=== PATIENT | female | born 1980 | race Caucasian/White ===

== ENCOUNTER 2018-08-15 10:11 | Inpatient (IN) | payer OTHER ==
[2018-08-15] MEDS ORDERED: Nalbuphine 10 MG/1 ML Vial IVPUSH PRN (19:14)
[2018-08-15] MEDS ORDERED: Lidocaine 1% 50 ML MDV INJECT PRN (19:14)
[2018-08-15] MEDS ORDERED: Sodium Chloride 0.9% 2.5 ML Syringe FLUSH PRN (19:14)
[2018-08-15] MEDS ORDERED: Misoprostol 200 MCG Tab PO PRN (19:14)
[2018-08-15] MEDS ORDERED: Water For Irrigation,Sterile 1,000 ML Container IRR PRN (19:14)
[2018-08-15] MEDS ORDERED: Butorphanol 1 MG/ML SDV IVPUSH PRN (19:14)
[2018-08-15] MEDS ORDERED: Tranexamic Acid 1,000 MG in Sodium Chloride 0.9% 100 ML IV PRN (19:14)
[2018-08-15] MEDS ORDERED: Carboprost Tromethamine 250 MCG/1 ML Amp IM PRN (19:14)
[2018-08-15] MEDS ORDERED: Methylergonovine 0.2 MG/1 ML Amp IM PRN (19:14)
[2018-08-15] MEDS ORDERED: Sodium Chloride 0.9% 10 ML Syringe FLUSH PRN (19:14)
[2018-08-15] MEDS ORDERED: Oxytocin/0.9 % Sodium Chloride 30 UNIT/500 ML BAG IV SCH ×2 (19:15→20:15)
[2018-08-15] MEDS ORDERED: Misoprostol 25 MCG (1/4 of 100 MCG) Tab VAG PRN (20:10)
[2018-08-15] MEDS ORDERED: Terbutaline 1 MG/ML SDV SUBCUT PRN (20:10)
[2018-08-15 20:15] LABS: CHLORIDE,CL 105 mmol/L (98-107); SODIUM,NA 134 mmol/L (136-145)
[2018-08-15] MEDS ORDERED: Insulin NPH/Insulin Regular,Human 70-30 100 Units/ML 10 ML Vial SUBCUT SCH (22:00)
[2018-08-15] MEDS: Insuln Aspart Prot/Insulin Aspart 100 Units/ML 3 ML FlexPen SUBCUT SCH (22:42)
[2018-08-16] MEDS: Misoprostol 25 MCG (1/4 of 100 MCG) Tab VAG PRN ×2 (00:55→05:20)
[2018-08-16] MEDS: Insuln Aspart Prot/Insulin Aspart 100 Units/ML 3 ML FlexPen SUBCUT SCH ×2 (08:48→21:00)
[2018-08-16] MEDS: Lactated Ringers 1,000 ML IV SCH ×2 (15:27→21:14)
[2018-08-16] MEDS ORDERED: Lidocaine HCl/EPINEPHrine 5 ML IJ ONE (15:51)
[2018-08-16] MEDS ORDERED: fentaNYL 100 MCG/2 ML SDV ONE (15:51)
--- NOTE | 2018-08-16 16:33 | PCM.PREANE ---
Preanesthetic Assessment - Anesthesia/Transfusion/Family Hx Anesthesia History: Prior Anesthesia Without Reaction Family History of Anesthesia Reaction: No Transfusion History: No Prior Transfusion(s) - Review of Systems General: No Symptoms Pulmonary: No Symptoms Cardiovascular: No Symptoms Gastrointestinal: No Symptoms Neurological: No Symptoms Other: Reports: None (Denies any personal or family hx of bleeding or clotting problems) - Physical Assessment Height: 1.6 m Weight: 94.801 kg ASA Class: 2 Mental Status: Alert & Oriented x3 Airway Class: Mallampati = 2 Dentition: Reports: Normal Dentition ROM/Head Extension: Full - Lab Values: Laboratory Last Values WBC 8.71 K/uL (4.0-11.0) 08/15/18 19:44 RBC 3.89 M/uL (4.30-5.90) L 08/15/18 19:44 Hgb 12.9 g/dL (12.0-16.0) 08/15/18 19:44 Hct 37.2 % (36.0-46.0) 08/15/18 19:44 MCV 95.6 fL (80.0-98.0) 08/15/18 19:44 MCH 33.2 pg (27.0-32.0) H 08/15/18 19:44 MCHC 34.7 g/dL (31.0-37.0) 08/15/18 19:44 RDW Std Deviation 45.0 fl (28.0-62.0) 08/15/18 19:44 RDW Coeff of Lana 13 % (11.0-15.0) 08/15/18 19:44 Plt Count 181 K/uL (150-400) 08/15/18 19:44 MPV 11.30 fL (7.40-12.00) 08/15/18 19:44 Nucleated RBC % 0.0 /100WBC 08/15/18 19:44 Nucleated RBCs # 0 K/uL 08/15/18 19:44 Sodium 134 mmol/L (136-145) L 08/15/18 19:44 Potassium 3.6 mmol/L (3.5-5.1) 08/15/18 19:44 Chloride 105 mmol/L (98-107) 08/15/18 19:44 Carbon Dioxide 19.1 mmol/L (21.0-32.0) L 08/15/18 19:44 BUN 14 mg/dL (7.0-18.0) 08/15/18 19:44 Creatinine 0.9 mg/dL (0.6-1.0) 08/15/18 19:44 Est Cr Clr Drug Dosing 68.73 mL/min 08/15/18 19:44 Estimated GFR (MDRD) > 60.0 ml/min 08/15/18 19:44 Glucose 106 mg/dL (74-106) 08/15/18 19:44 POC Glucose 60 mg/dL (60-110) 08/16/18 13:14 Uric Acid 6.2 mg/dL (2.6-7.2) 08/15/18 19:44 Calcium 9.0 mg/dL (8.5-10.1) 08/15/18 19:44 Total Bilirubin 0.2 mg/dL (0.2-1.0) 08/15/18 19:44 AST 23 IU/L (15-37) 08/15/18 19:44 ALT 15 IU/L (14-63) 08/15/18 19:44 Alkaline Phosphatase 172 U/L (46-116) H 08/15/18 19:44 Total Protein 6.8 g/dL (6.4-8.2) 08/15/18 19:44 Albumin 2.5 g/dL (3.4-5.0) L 08/15/18 19:44 Globulin 4.3 g/dL (2.6-4.0) H 08/15/18 19:44 Albumin/Globulin Ratio 0.6 (0.9-1.6) L 08/15/18 19:44 Blood Type A POSITIVE 08/15/18 19:44 Antibody Screen NEGATIVE 08/15/18 19:44 - Allergies Allergies/Adverse Reactions: Allergies Allergy/AdvReac Type Severity Reaction Status Date / Time No Known Allergies Allergy Verified 06/17/14 05:41 - Acknowledgements Anesthesia Type Planned: Epidural Pt an Appropriate Candidate for the Planned Anesthesia: Yes Alternatives and Risks of Anesthesia Discussed w Pt/Guardian: Yes Pt/Guardian Understands and Agrees with Anesthesia Plan: Yes PreAnesthesia Questionnaire - Past Health History Medical/Surgical History: Denies Medical/Surgical History Gastrointestinal History: Reports: Diverticulosis [employer]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 [No Known Home Meds] 06/17/14 [History] - CURRENT (IN HOUSE) MEDS Current Meds: Current Medications Butorphanol Tartrate (Stadol) 1 mg IVPUSH Q1H PRN PRN Reason: Pain Last Admin: 08/16/18 08:44 Dose: 1 mg Carboprost Tromethamine (Hemabate Ds) 250 mcg IM ASDIRECTED PRN PRN Reason: Post Hemorrhage Lactated Ringer's (Ringers, Lactated) 1,000 mls @ 150 mls/hr IV ASDIRECTED [facility] Oxytocin/Sodium Chloride (Oxytocin 30 Unit/500 Ml-Ns) 30 unit in 500 mls @ 555 mls/hr IV TITRATE [facility] Tranexamic Acid 1,000 mg/ (Sodium Chloride) 110 mls @ 660 mls/hr IV ONETIME PRN PRN Reason: Bleeding Oxytocin/Sodium Chloride (Oxytocin 30 Unit/500 Ml-Ns) 30 unit in 500 mls @ 2 mls/hr IV TITRATE [facility]; Protocol Insulin Aspart (Novolog Mix 70-30) 6 unit SUBCUT DAILY@0700 [facility] Last Admin: 08/16/18 08:48 Dose: Not Given Insulin Aspart (Novolog Mix 70-30) 15 unit SUBCUT DAILY@2200 [facility] Last Admin: 08/15/18 22:42 Dose: 15 units Lidocaine HCl (Xylocaine 1%) 50 ml INJECT ONETIME PRN PRN Reason: Laceration repair Methylergonovine Maleate (Methergine) 0.2 mg IM ASDIRECTED PRN PRN Reason: Post Hemorrhage Misoprostol (Cytotec) 200 mcg PO ONETIME PRN PRN Reason: Post Hemorrhage Misoprostol (Cytotec) 25 mcg VAG ONETIME PRN PRN Reason: Cervical Ripening Last Admin: 08/15/18 20:44 Dose: 25 mcg Misoprostol (Cytotec) 25 mcg VAG Q4H PRN PRN Reason: Cervical Ripening Last Admin: 08/16/18 05:20 Dose: 25 mcg Nalbuphine HCl (Nubain) 10 mg IVPUSH Q1H PRN PRN Reason: Pain (severe 7-10) Sodium Chloride (Saline Flush) 10 ml FLUSH ASDIRECTED PRN PRN Reason: Keep Vein Open Sodium Chloride (Saline Flush) 2.5 ml FLUSH ASDIRECTED PRN PRN Reason: Keep Vein Open Sterile Water (Sterile Water For Irrigation) 1,000 ml IRR ASDIRECTED PRN PRN Reason: delivery Terbutaline Sulfate (Brethine) 0.25 mg SUBCUT ASDIRECTED PRN PRN Reason: Tacysystole Discontinued Medications Fentanyl (Sublimaze) Confirm Administered Dose 100 mcg .ROUTE .STK-MED ONE Stop: 08/16/18 15:52 Fentanyl/Bupivacaine HCl (Orvsyfad-Ghsjx-Qs 2 Mcg/Ml-0.125%) Confirm Administered Dose 100 mls @ as directed .ROUTE .STK-MED ONE Stop: 08/16/18 15:51 Insulin Human Isoph/Insulin Regular (Novolin 70-30) 15 unit SUBCUT ONETIME JONO Lidocaine/Epinephrine (Lidocaine 1.5%-Epi 1:200,000) Confirm Administered Dose 5 ml IJ .STK-MED ONE Stop: 08/16/18 15:52
[2018-08-17] MEDS ORDERED: fentaNYL 100 MCG/2 ML SDV ONE ×2 (01:28→08:40)
[2018-08-17] MEDS: Lactated Ringers 1,000 ML IV SCH (06:36)
[2018-08-17] MEDS ORDERED: Lidocaine 2% with EPINEPHrine 1:100,000 20 ML MDV INJECT ONE (08:05)
[2018-08-17] MEDS ORDERED: Oxytocin 10 Units/1 ML SDV ONE ×2 (09:06→10:39)
[2018-08-17] MEDS ORDERED: Morphine PF 10 MG/10 ML SDV ONE (09:07)
[2018-08-17] MEDS ORDERED: ceFAZolin 2 GM in Premix Bag 1 BAG IV ONE (09:24)
[2018-08-17] MEDS ORDERED: ceFAZolin/Dextrose,Iso-Osmotic 2 GM/50 ML Duplex Bag IV ONE (09:25)
[2018-08-17] MEDS ORDERED: Nalbuphine 10 MG/1 ML Vial IVPUSH PRN (10:14)
[2018-08-17] MEDS ORDERED: HYDROmorphone 2 MG/ML Syringe IVPUSH ONE (10:14)
[2018-08-17] MEDS ORDERED: fentaNYL 100 MCG/2 ML SDV IVPUSH PRN (10:14)
[2018-08-17] MEDS ORDERED: fentaNYL 250 MCG/5 ML SDV ONE (10:29)
[2018-08-17] MEDS ORDERED: Ondansetron 4 MG/2 ML SDV ONE (10:31)
[2018-08-17] MEDS ORDERED: Midazolam 1 MG/ML 2 ML SDV ONE ×2 (10:33→10:50)
[2018-08-17] MEDS ORDERED: Propofol 200 MG/20 ML SDV ONE (10:49)
--- NOTE | 2018-08-17 11:55 | PCM.POSTAN ---
POST ANESTHESIA ASSESSMENT - MENTAL STATUS Mental Status: Alert, Oriented - RESPIRATORY Respiratory Status: Respiratory Rate WNL, Airway Patent, O2 Saturation Stable - CARDIOVASCULAR CV Status: Pulse Rate WNL, Blood Pressure Stable - GASTROINTESTINAL GI Status: No Symptoms - POST OP HYDRATION Hydration Status: Adequate & Stable
[2018-08-17] MEDS ORDERED: Acetaminophen/oxyCODONE 325-5 MG Tab PO PRN (12:32)
[2018-08-17] MEDS ORDERED: Ibuprofen 800 MG Tab PO PRN (12:32)
[2018-08-17] MEDS ORDERED: Lanolin 100% Cream 7 GM Tube TOP PRN (12:32)
[2018-08-17] MEDS ORDERED: Bisacodyl 10 MG Supp RECTAL PRN (12:32)
[2018-08-17] MEDS ORDERED: diphenhydrAMINE 50 MG/ML SDV IVPUSH PRN (12:32)
[2018-08-17] MEDS ORDERED: Ondansetron 4 MG/2 ML SDV IVPUSH PRN (12:32)
[2018-08-17] MEDS ORDERED: Lactated Ringers 1,000 ML IV SCH (12:45)
--- NOTE | 2018-08-17 13:00 | PCM.OPNOTE ---
- General Post-Op/Procedure Note Date of Surgery/Procedure: 08/17/18 Operative Procedure(s): Primary lower transverse Findings: Live female delivered at 1011am , 9/9 , weight 3270g Pre Op Diagnosis: 38yo @ 38w1d with cat 2FHT. GDMA2. Preclampsia Post-Op Diagnosis: same Anesthesia Technique: Epidural Primary Surgeon: Pamela Mandujano Anesthesia Provider: Zaheer Aguayo Split Fluid Replacement, Intraop: 1,200 Output, Urine Amount: 600 EBL in mLs: 700 Complications: None Condition: Good Free Text/Narrative:: Intake & Output 08/16/18 08/17/18 08/17/18 22:59 06:59 14:59 Intake Total 1500 Output Total 1325 Balance 175
[2018-08-17] MEDS: Ketorolac 30 MG/ML SDV IVPUSH SCH ×2 (13:47→19:49)
--- NOTE | 2018-08-17 15:49 | OR ---
SURGEON: FELA NIELSON DATE OF PROCEDURE:08/17/2018 PREOPERATIVE DIAGNOSIS: This 38-year-old, 1 para 0 at 38 weeks and 1 day for induction of labor secondary to: 1. Gestational diabetes, on insulin control. 2. Preeclampsia. 3. She had intolerance of labor, category 2 heart tracing. POSTOPERATIVE DIAGNOSIS: This 38-year-old, 1 para 0 at 38 weeks and 1 day for induction of labor secondary to: 1. Gestational diabetes, on insulin control. 2. Preeclampsia. 3. She had intolerance of labor, category 2 heart tracing. PROCEDURE: Primary lower transverse section. ESTIMATED BLOOD LOSS: 700. IV FLUIDS: 1200. URINE OUTPUT: 600. FINDINGS: Live female delivered at 10:11 a.m. Scores were 9 and 9. Weight is 3270 g. BRIEF HISTORY: The patient at 38 weeks who was seen in the clinic. She was GDMA2, on insulin. The patient was noted to have mildly elevated blood pressures and 1+ protein in her urine. As a result, the patient was counseled for induction of labor for mild preeclampsia and GDM. So, the patient's induction of labor was started with Cytotec. She received about 4 doses of Cytotec after which a Hillman was placed in. The Hillman came out. After the Hillman came out, Pitocin was started, also AROM was done. The patient made slow progress and became about 9 cm dilated. However, the patient's tracing was noted to be category 2 heart tracing, which was not responding to intrauterine resuscitation . She was having vtgtylf-aq-leebnoxh variability and some occasional late deceleration. As a result of this, the patient was given the option for continued induction versus primary section for well being. The patient understood all the risks, benefits, and alternatives and she desired to proceed with a . All questions were answered. PROCEDURE IN DETAIL: The patient was taken to the operating suite where epidural anesthesia was topped up. She was prepared and draped in normal dorsal lithotomy position with a leftward tilt. A Pfannenstiel skin incision was made with a scalpel and carried down to the fascia with the Bovie. The fascia was incised and extended up laterally. The fascia was dissected off the rectus muscle superiorly and inferiorly. The rectus muscle was in the midline. Then, the peritoneum was entered in bluntly. The omentum was noted to be adhered to the peritoneum, was removed via the electrocautery device. An Bill retractor was placed in to expose the lower uterine segment. A bladder flap was also created. The lower uterine incision was made with a scalpel, was extended upwards and downwards. The fetus was in occiput transverse position, was elevated to the level of the incision. Then fundal pressure was performed. The head was delivered followed by the anterior and posterior shoulders. The cord was clamped and cut. The infant was handed over to the waiting pedal assembler. The placenta was delivered via controlled cord traction. The uterus cavity was then cleaned with laparotomy sponge. Then incision was closed in 2 layers, first layer with 0 Vicryl and second layer was closed with 0 Monocryl. Then, the tubes were noted and the ovaries were noted to be normal. The gutters were cleaned with moist laparotomy sponges. The peritoneum was closed with 2-0 Vicryl. The fascia was closed with 0 Vicryl. The subcutaneous fascia was cleaned with a moist laparotomy sponge. Then, a subcutaneous stitch was done. Then, the skin was closed with 3-0 Monocryl on a Steve needle. All instrument and pad count were correct x3. The patient tolerated the procedure and taken to the [facility] room in stable condition. CHARLES LINO /[id number] MTDD
[2018-08-17] MEDS: Insuln Aspart Prot/Insulin Aspart 100 Units/ML 3 ML FlexPen SUBCUT SCH (20:09)
[2018-08-17] MEDS: Docusate Sodium 100 MG Cap PO SCH (21:22)
[2018-08-18] MEDS: Insuln Aspart Prot/Insulin Aspart 100 Units/ML 3 ML FlexPen SUBCUT SCH ×3 (00:17→22:17)
[2018-08-18] MEDS: Ketorolac 30 MG/ML SDV IVPUSH SCH ×3 (01:45→13:38)
--- NOTE | 2018-08-18 06:58 | PCM48HPAN ---
Post Anesthesia Note - EVALUATION WITHIN 48HRS OF ANESTHETIC Vital Signs in Normal Range: Yes Patient Participated in Evaluation: Yes Respiratory Function Stable: Yes Airway Patent: Yes Cardiovascular Function Stable: Yes Hydration Status Stable: Yes Pain Control Satisfactory: Yes Nausea and Vomiting Control Satisfactory: Yes Mental Status Recovered: Yes Resp Rate: 18 - COMMENTS/OBSERVATIONS Free Text/Narrative:: Sitting up in bed and denies any complaints
--- NOTE | 2018-08-18 08:03 | PCM.PNPP ---
- General Info Date of Service: 08/18/18 Functional Status: Reports: Pain Controlled, Tolerating Diet, Ambulating, Urinating - Review of Systems General: Denies: Fever, Weakness, Fatigue Pulmonary: Denies: Shortness of Breath, Pleuritic Chest Pain, Cough Cardiovascular: Denies: Chest Pain, Palpitations, Dyspnea on Exertion Gastrointestinal: Denies: Abdominal Pain Genitourinary: Denies: Dysuria - General Info Date of Service: 08/18/18 - Patient Data Vital Signs - Most Recent: Last Vital Signs Temp 36.7 C 08/18/18 06:00 Pulse 91 08/18/18 06:00 Resp 18 08/18/18 06:58 BP 120/72 08/18/18 06:00 Pulse Ox 99 08/18/18 06:00 Weight - Most Recent: 94.801 kg I&O - Last 24 Hours: Intake & Output 08/17/18 08/18/18 08/18/18 22:59 06:59 14:59 Output Total 650 350 Balance -650 -350 Lab Results - Last 24 Hours: Laboratory Results - last 24 hr 08/18/18 08/18/18 Range/Units 05:22 05:22 Hgb 9.8 L (12.0-16.0) g/dL Hct 29.6 L (36.0-46.0) % Fasting Glucose 89 (74-106) mg/dL Med Orders - Current: Current Medications Bisacodyl (Dulcolax) 10 mg RECTAL ONETIME PRN PRN Reason: Constipation Diphenhydramine HCl (Benadryl) 25 mg IVPUSH Q6H PRN PRN Reason: Itching or Nausea Docusate Sodium (Colace) 100 mg PO BID [facility] Last Admin: 08/17/18 21:22 Dose: 100 mg Emollient Ointment (Lansinoh Hpa) 0 gm TOP ASDIRECTED PRN PRN Reason: Sore Nipples Fentanyl (Sublimaze) 50 mcg IVPUSH Q5M PRN PRN Reason: Pain (severe 7-10) Stop: 08/18/18 10:14 Lactated Ringer's (Ringers, Lactated) 1,000 mls @ 125 mls/hr IV ASDIRECTED [facility] Last Admin: 08/17/18 21:22 Dose: 125 mls/hr Ibuprofen (Motrin) 800 mg PO Q8H PRN PRN Reason: mild pain or fever Insulin Aspart (Novolog Mix 70-30) 6 unit SUBCUT DAILY@0700 [facility] Last Admin: 08/18/18 07:45 Dose: Not Given Insulin Aspart (Novolog Mix 70-30) 15 unit SUBCUT DAILY@2200 [facility] Last Admin: 08/18/18 00:17 Dose: Not Given Ketorolac Tromethamine (Toradol) 30 mg IVPUSH Q6H [facility] Stop: 08/18/18 12:46 Last Admin: 08/18/18 07:40 Dose: 30 mg Nalbuphine HCl (Nubain) 2.5 mg IVPUSH Q3H PRN PRN Reason: Pruritis Stop: 08/18/18 10:15 Ondansetron HCl (Zofran) 4 mg IVPUSH Q4H PRN PRN Reason: Nausea/Vomiting Oxycodone/Acetaminophen (Percocet 325-5 Mg) 1 tab PO Q4H PRN PRN Reason: Pain (moderate 4-6) Oxycodone/Acetaminophen (Percocet 325-5 Mg) 2 tab PO Q4H PRN PRN Reason: Pain (moderate 4-6) Sodium Chloride (Saline Flush) 10 ml FLUSH ASDIRECTED PRN PRN Reason: Keep Vein Open Sodium Chloride (Saline Flush) 2.5 ml FLUSH ASDIRECTED PRN PRN Reason: Keep Vein Open Discontinued Medications Butorphanol Tartrate (Stadol) 1 mg IVPUSH Q1H PRN PRN Reason: Pain Last Admin: 08/16/18 08:44 Dose: 1 mg Carboprost Tromethamine (Hemabate Ds) 250 mcg IM ASDIRECTED PRN PRN Reason: Post Hemorrhage Cefazolin Sodium/Dextrose (Ancef) Confirm Administered Dose 2 gm IV .STK-MED ONE Stop: 08/17/18 09:26 Last Admin: 08/17/18 20:10 Dose: Not Given Fentanyl (Sublimaze) Confirm Administered Dose 100 mcg .ROUTE .STK-MED ONE Stop: 08/16/18 15:52 Last Admin: 08/17/18 20:09 Dose: Not Given Fentanyl (Sublimaze) Confirm Administered Dose 100 mcg .ROUTE .STK-MED ONE Stop: 08/17/18 01:29 Last Admin: 08/17/18 20:09 Dose: Not Given Fentanyl (Sublimaze) Confirm Administered Dose 100 mcg .ROUTE .STK-MED ONE Stop: 08/17/18 08:41 Last Admin: 08/17/18 20:10 Dose: Not Given Fentanyl (Sublimaze) Confirm Administered Dose 250 mcg .ROUTE .STK-MED ONE Stop: 08/17/18 10:30 Hydromorphone HCl (Dilaudid) 2 mg IVPUSH ONETIME ONE Stop: 08/17/18 10:15 Last Admin: 08/17/18 20:10 Dose: Not Given Lactated Ringer's (Ringers, Lactated) 1,000 mls @ 150 mls/hr IV ASDIRECTED [facility] Last Admin: 08/17/18 06:36 Dose: 150 mls/hr Oxytocin/Sodium Chloride (Oxytocin 30 Unit/500 Ml-Ns) 30 unit in 500 mls @ 555 mls/hr IV TITRATE [facility] Tranexamic Acid 1,000 mg/ (Sodium Chloride) 110 mls @ 660 mls/hr IV ONETIME PRN PRN Reason: Bleeding Oxytocin/Sodium Chloride (Oxytocin 30 Unit/500 Ml-Ns) 30 unit in 500 mls @ 2 mls/hr IV TITRATE [facility]; Protocol Last Titration: 08/17/18 07:04 Dose: 18 munits/min, 18 mls/hr Fentanyl/Bupivacaine HCl (Wwejfuak-Yggfl-Nc 2 Mcg/Ml-0.125%) Confirm Administered Dose 100 mls @ as directed .ROUTE .[employer]-MED ONE Stop: 08/16/18 15:51 Last Admin: 08/17/18 20:09 Dose: Not Given Fentanyl/Bupivacaine HCl (Sugiibbs-Socdz-Iq 2 Mcg/Ml-0.125%) Confirm Administered Dose 100 mls @ as directed .ROUTE .STK-MED ONE Stop: 08/17/18 01:22 Last Admin: 08/17/18 20:09 Dose: Not Given Fentanyl/Bupivacaine HCl (Ckcjaazu-Epazb-Al 2 Mcg/Ml-0.125%) Confirm Administered Dose 100 mls @ as directed .ROUTE .STK-MED ONE Stop: 08/17/18 08:42 Last Admin: 08/17/18 20:10 Dose: Not Given Cefazolin Sodium/Dextrose 2 gm (/ Premix) 50 mls @ 100 mls/hr IV ONETIME ONE Stop: 08/17/18 09:53 Last Admin: 08/17/18 20:10 Dose: Not Given Insulin Human Isoph/Insulin Regular (Novolin 70-30) 15 unit SUBCUT ONETIME JONO Lidocaine HCl (Xylocaine 1%) 50 ml INJECT ONETIME PRN PRN Reason: Laceration repair Lidocaine/Epinephrine (Lidocaine 1.5%-Epi 1:200,000) Confirm Administered Dose 5 ml IJ .STK-MED ONE Stop: 08/16/18 15:52 Last Admin: 08/17/18 20:09 Dose: Not Given Methylergonovine Maleate (Methergine) 0.2 mg IM ASDIRECTED PRN PRN Reason: Post Hemorrhage Midazolam HCl (Versed 1 Mg/Ml) Confirm Administered Dose 2 mg .ROUTE .STK-MED ONE Stop: 08/17/18 10:34 Midazolam HCl (Versed 1 Mg/Ml) Confirm Administered Dose 2 mg .ROUTE .STK-MED ONE Stop: 08/17/18 10:51 Misoprostol (Cytotec) 200 mcg PO ONETIME PRN PRN Reason: Post Hemorrhage Misoprostol (Cytotec) 25 mcg VAG ONETIME PRN PRN Reason: Cervical Ripening Last Admin: 08/15/18 20:44 Dose: 25 mcg Misoprostol (Cytotec) 25 mcg VAG Q4H PRN PRN Reason: Cervical Ripening Last Admin: 08/16/18 05:20 Dose: 25 mcg Morphine Sulfate (Duramorph Pf) Confirm Administered Dose 10 mg .ROUTE .STK-MED ONE Stop: 08/17/18 09:08 Nalbuphine HCl (Nubain) 10 mg IVPUSH Q1H PRN PRN Reason: Pain (severe 7-10) Ondansetron HCl (Zofran) Confirm Administered Dose 4 mg .ROUTE .STK-MED ONE Stop: 08/17/18 10:32 Oxytocin (Pitocin) Confirm Administered Dose 10 unit .ROUTE .STK-MED ONE Stop: 08/17/18 09:07 Oxytocin (Pitocin) Confirm Administered Dose 20 unit .ROUTE .STK-MED ONE Stop: 08/17/18 10:40 Propofol (Diprivan 20 Ml) Confirm Administered Dose 200 mg .ROUTE .STK-MED ONE Stop: 08/17/18 10:50 Sterile Water (Sterile Water For Irrigation) 1,000 ml IRR ASDIRECTED PRN PRN Reason: delivery Terbutaline Sulfate (Brethine) 0.25 mg SUBCUT ASDIRECTED PRN PRN Reason: Tacysystole - Infant Interaction Infant Disposition, : in Room with Family Interaction: Holding Feeding: Attempted ; Nursed Fair/Poor, Encouraged to Breastfeed Support Person: - Recovery Exam Fundal Tone: Firm Fundal Level: 1 Fingerbreadths Below Umbilicus Fundal Placement: Midline Lochia Amount: Scant Lochia Color: Rubra/Red Perineum Description: Intact, Minimal Bruising/Swelling Episiotomy/Laceration: None Bladder Status: Indwelling Catheter in Place Urinary Elimination: Indwelling Catheter - Exam General: Alert, Oriented Neck: Supple Lungs: Clear to Auscultation, Normal Respiratory Effort Cardiovascular: Regular Rate, Regular Rhythm GI/Abdominal Exam: Normal Bowel Sounds, Soft, Non-Tender, No Distention, No Mass Extremities: Normal Inspection, Normal Range of Motion (trace), Non-Tender, Normal Capillary Refill, Pedal Edema Skin: Warm, Dry, Intact - Problem List & Annotations (1) delivery delivered SNOMED Code(s): 454856646 Code(s): O82 - ENCOUNTER FOR DELIVERY WITHOUT INDICATION Status: Acute Current Visit: Yes - Problem List Review Problem List Initiated/Reviewed/Updated: Yes - Assessment Assessment:: PPD #1 s/p PLTCS with minimal pain and lochia. Fasting glucose was 89. BPs WNL - Plan Plan:: Continue routine post op cares. Anticipate discharge home tomorrow.
[2018-08-18] MEDS: Docusate Sodium 100 MG Cap PO SCH ×2 (09:05→20:19)
[2018-08-18] MEDS: Acetaminophen/oxyCODONE 325-5 MG Tab PO PRN ×2 (20:19→21:33)
[2018-08-19] MEDS: Acetaminophen/oxyCODONE 325-5 MG Tab PO PRN ×2 (05:32→10:34)
--- NOTE | 2018-08-19 08:15 | PCM.PNPP ---
<Marni Unger - Last Filed: 08/19/18 08:18> - General Info Date of Service: 08/19/18 Functional Status: Reports: Pain Controlled, Tolerating Diet, Ambulating, Urinating - Review of Systems General: Denies: Fever, Weakness, Fatigue Pulmonary: Denies: Shortness of Breath, Pleuritic Chest Pain, Cough Cardiovascular: Denies: Chest Pain, Palpitations, Dyspnea on Exertion Gastrointestinal: Denies: Abdominal Pain Genitourinary: Denies: Dysuria - General Info Date of Service: 08/19/18 - Patient Data Vital Signs - Most Recent: Last Vital Signs Temp 36.9 C 08/19/18 04:00 Pulse 96 08/19/18 04:00 Resp 17 08/19/18 04:00 BP 128/67 08/19/18 04:00 Pulse Ox 96 08/19/18 04:00 Weight - Most Recent: 94.801 kg Med Orders - Current: Current Medications Bisacodyl (Dulcolax) 10 mg RECTAL ONETIME PRN PRN Reason: Constipation Diphenhydramine HCl (Benadryl) 25 mg IVPUSH Q6H PRN PRN Reason: Itching or Nausea Docusate Sodium (Colace) 100 mg PO BID [facility] Last Admin: 08/18/18 20:19 Dose: 100 mg Emollient Ointment (Lansinoh Hpa) 0 gm TOP ASDIRECTED PRN PRN Reason: Sore Nipples Last Admin: 08/18/18 09:05 Dose: 1 tube Lactated Ringer's (Ringers, Lactated) 1,000 mls @ 125 mls/hr IV ASDIRECTED [facility] Last Admin: 08/17/18 21:22 Dose: 125 mls/hr Ibuprofen (Motrin) 800 mg PO Q8H PRN PRN Reason: mild pain or fever Last Admin: 08/19/18 05:32 Dose: 800 mg Insulin Aspart (Novolog Mix 70-30) 6 unit SUBCUT DAILY@0700 [facility] Last Admin: 08/18/18 07:45 Dose: Not Given Insulin Aspart (Novolog Mix 70-30) 15 unit SUBCUT DAILY@2200 [facility] Last Admin: 08/18/18 22:17 Dose: Not Given Ondansetron HCl (Zofran) 4 mg IVPUSH Q4H PRN PRN Reason: Nausea/Vomiting Oxycodone/Acetaminophen (Percocet 325-5 Mg) 1 tab PO Q4H PRN PRN Reason: Pain (moderate 4-6) Last Admin: 08/19/18 05:32 Dose: 1 tab Oxycodone/Acetaminophen (Percocet 325-5 Mg) 2 tab PO Q4H PRN PRN Reason: Pain (moderate 4-6) Sodium Chloride (Saline Flush) 10 ml FLUSH ASDIRECTED PRN PRN Reason: Keep Vein Open Sodium Chloride (Saline Flush) 2.5 ml FLUSH ASDIRECTED PRN PRN Reason: Keep Vein Open Discontinued Medications Butorphanol Tartrate (Stadol) 1 mg IVPUSH Q1H PRN PRN Reason: Pain Last Admin: 08/16/18 08:44 Dose: 1 mg Carboprost Tromethamine (Hemabate Ds) 250 mcg IM ASDIRECTED PRN PRN Reason: Post Hemorrhage Cefazolin Sodium/Dextrose (Ancef) Confirm Administered Dose 2 gm IV .STK-MED ONE Stop: 08/17/18 09:26 Last Admin: 08/17/18 20:10 Dose: Not Given Fentanyl (Sublimaze) Confirm Administered Dose 100 mcg .ROUTE .STK-MED ONE Stop: 08/16/18 15:52 Last Admin: 08/17/18 20:09 Dose: Not Given Fentanyl (Sublimaze) Confirm Administered Dose 100 mcg .ROUTE .STK-MED ONE Stop: 08/17/18 01:29 Last Admin: 08/17/18 20:09 Dose: Not Given Fentanyl (Sublimaze) Confirm Administered Dose 100 mcg .ROUTE .STK-MED ONE Stop: 08/17/18 08:41 Last Admin: 08/17/18 20:10 Dose: Not Given Fentanyl (Sublimaze) 50 mcg IVPUSH Q5M PRN PRN Reason: Pain (severe 7-10) Stop: 08/18/18 10:14 Fentanyl (Sublimaze) Confirm Administered Dose 250 mcg .ROUTE .STK-MED ONE Stop: 08/17/18 10:30 Hydromorphone HCl (Dilaudid) 2 mg IVPUSH ONETIME ONE Stop: 08/17/18 10:15 Last Admin: 08/17/18 20:10 Dose: Not Given Lactated Ringer's (Ringers, Lactated) 1,000 mls @ 150 mls/hr IV ASDIRECTED [facility] Last Admin: 08/17/18 06:36 Dose: 150 mls/hr Oxytocin/Sodium Chloride (Oxytocin 30 Unit/500 Ml-Ns) 30 unit in 500 mls @ 555 mls/hr IV TITRATE JONO Tranexamic Acid 1,000 mg/ (Sodium Chloride) 110 mls @ 660 mls/hr IV ONETIME PRN PRN Reason: Bleeding Oxytocin/Sodium Chloride (Oxytocin 30 Unit/500 Ml-Ns) 30 unit in 500 mls @ 2 mls/hr IV TITRATE JONO; Protocol Last Titration: 08/17/18 07:04 Dose: 18 munits/min, 18 mls/hr Fentanyl/Bupivacaine HCl (Hjhszfio-Izdjf-Sk 2 Mcg/Ml-0.125%) Confirm Administered Dose 100 mls @ as directed .ROUTE .STK-MED ONE Stop: 08/16/18 15:51 Last Admin: 08/17/18 20:09 Dose: Not Given Fentanyl/Bupivacaine HCl (Pxvvjgri-Qxsmr-Wy 2 Mcg/Ml-0.125%) Confirm Administered Dose 100 mls @ as directed .ROUTE .STK-MED ONE Stop: 08/17/18 01:22 Last Admin: 08/17/18 20:09 Dose: Not Given Fentanyl/Bupivacaine HCl (Tfwyuyxs-Kyxtm-Pl 2 Mcg/Ml-0.125%) Confirm Administered Dose 100 mls @ as directed .ROUTE .STK-MED ONE Stop: 08/17/18 08:42 Last Admin: 08/17/18 20:10 Dose: Not Given Cefazolin Sodium/Dextrose 2 gm (/ Premix) 50 mls @ 100 mls/hr IV ONETIME ONE Stop: 08/17/18 09:53 Last Admin: 08/17/18 20:10 Dose: Not Given Insulin Human Isoph/Insulin Regular (Novolin 70-30) 15 unit SUBCUT ONETIME [facility] Ketorolac Tromethamine (Toradol) 30 mg IVPUSH Q6H [facility] Stop: 08/18/18 12:46 Last Admin: 08/18/18 13:38 Dose: 30 mg Lidocaine HCl (Xylocaine 1%) 50 ml INJECT ONETIME PRN PRN Reason: Laceration repair Lidocaine/Epinephrine (Lidocaine 1.5%-Epi 1:200,000) Confirm Administered Dose 5 ml IJ .STK-MED ONE Stop: 08/16/18 15:52 Last Admin: 08/17/18 20:09 Dose: Not Given Lidocaine/Epinephrine (Xylocaine 2% With Epinephrine 1:100,000) 0 ml INJECT .STK-MED ONE Stop: 08/17/18 08:06 Methylergonovine Maleate (Methergine) 0.2 mg IM ASDIRECTED PRN PRN Reason: Post Hemorrhage Midazolam HCl (Versed 1 Mg/Ml) Confirm Administered Dose 2 mg .ROUTE .STK-MED ONE Stop: 08/17/18 10:34 Midazolam HCl (Versed 1 Mg/Ml) Confirm Administered Dose 2 mg .ROUTE .STK-MED ONE Stop: 08/17/18 10:51 Misoprostol (Cytotec) 200 mcg PO ONETIME PRN PRN Reason: Post Hemorrhage Misoprostol (Cytotec) 25 mcg VAG ONETIME PRN PRN Reason: Cervical Ripening Last Admin: 08/15/18 20:44 Dose: 25 mcg Misoprostol (Cytotec) 25 mcg VAG Q4H PRN PRN Reason: Cervical Ripening Last Admin: 08/16/18 05:20 Dose: 25 mcg Morphine Sulfate (Duramorph Pf) Confirm Administered Dose 10 mg .ROUTE .STK-MED ONE Stop: 08/17/18 09:08 Nalbuphine HCl (Nubain) 10 mg IVPUSH Q1H PRN PRN Reason: Pain (severe 7-10) Nalbuphine HCl (Nubain) 2.5 mg IVPUSH Q3H PRN PRN Reason: Pruritis Stop: 08/18/18 10:15 Ondansetron HCl (Zofran) Confirm Administered Dose 4 mg .ROUTE .STK-MED ONE Stop: 08/17/18 10:32 Oxytocin (Pitocin) Confirm Administered Dose 10 unit .ROUTE .STK-MED ONE Stop: 08/17/18 09:07 Oxytocin (Pitocin) Confirm Administered Dose 20 unit .ROUTE .STK-MED ONE Stop: 08/17/18 10:40 Propofol (Diprivan 20 Ml) Confirm Administered Dose 200 mg .ROUTE .STK-MED ONE Stop: 08/17/18 10:50 Sterile Water (Sterile Water For Irrigation) 1,000 ml IRR ASDIRECTED PRN PRN Reason: delivery Terbutaline Sulfate (Brethine) 0.25 mg SUBCUT ASDIRECTED PRN PRN Reason: Tacysystole - Infant Interaction Infant Disposition, : in Room with Family Infant Interaction: Holding Infant Infant Feeding: Attempted ; Nursed Fair/Poor, Encouraged to Breastfeed Support Person: - Recovery Exam Fundal Tone: Firm Fundal Level: 1 Fingerbreadths Below Umbilicus Fundal Placement: Midline Lochia Amount: Scant Lochia Color: Rubra/Red Perineum Description: Intact, Minimal Bruising/Swelling Episiotomy/Laceration: None Bladder Status: Voiding Urinary Elimination: Voided - Exam General: Alert, Oriented Neck: Supple Lungs: Clear to Auscultation, Normal Respiratory Effort Cardiovascular: Regular Rate, Regular Rhythm GI/Abdominal Exam: Normal Bowel Sounds, Soft, Non-Tender, No Distention Extremities: Normal Inspection, Non-Tender, Normal Capillary Refill, Pedal Edema (1+) Skin: Warm, Dry, Intact - Problem List & Annotations (1) delivery delivered SNOMED Code(s): 088596576 Code(s): O82 - ENCOUNTER FOR DELIVERY WITHOUT INDICATION Status: Acute Current Visit: Yes - Problem List Review Problem List Initiated/Reviewed/Updated: Yes - Assessment Assessment:: PPD #2 s/p PLTCS with minimal pain and lochia. Fasting glucoses WNL. Discharge home today. - Plan Plan:: Discharge home today. Rx for Percocet to use as needed for pain. Instructed patient to call if she develops fever greater than 101 or bleeding through a large pad an hour. No lifting greater than 10lbs for 6 weeks. F/U with [facility] in 2 and 6 weeks. Will need 2 hr GTT at 6 week PP visit <Pamela Mandujano - Last Filed: 08/19/18 09:36> - Patient Data Vital Signs - Most Recent: Last Vital Signs Temp 36.9 C 08/19/18 04:00 Pulse 96 08/19/18 04:00 Resp 17 08/19/18 04:00 BP 128/67 08/19/18 04:00 Pulse Ox 96 08/19/18 04:00 Med Orders - Current: Current Medications Bisacodyl (Dulcolax) 10 mg RECTAL ONETIME PRN PRN Reason: Constipation Diphenhydramine HCl (Benadryl) 25 mg IVPUSH Q6H PRN PRN Reason: Itching or Nausea Docusate Sodium (Colace) 100 mg PO BID [facility] Last Admin: 08/18/18 20:19 Dose: 100 mg Emollient Ointment (Lansinoh Hpa) 0 gm TOP ASDIRECTED PRN PRN Reason: Sore Nipples Last Admin: 08/18/18 09:05 Dose: 1 tube Lactated Ringer's (Ringers, Lactated) 1,000 mls @ 125 mls/hr IV ASDIRECTED [facility] Last Admin: 08/17/18 21:22 Dose: 125 mls/hr Ibuprofen (Motrin) 800 mg PO Q8H PRN PRN Reason: mild pain or fever Last Admin: 08/19/18 05:32 Dose: 800 mg Insulin Aspart (Novolog Mix 70-30) 6 unit SUBCUT DAILY@0700 [facility] Last Admin: 08/18/18 07:45 Dose: Not Given Insulin Aspart (Novolog Mix 70-30) 15 unit SUBCUT DAILY@2200 [facility] Last Admin: 08/18/18 22:17 Dose: Not Given Ondansetron HCl (Zofran) 4 mg IVPUSH Q4H PRN PRN Reason: Nausea/Vomiting Oxycodone/Acetaminophen (Percocet 325-5 Mg) 1 tab PO Q4H PRN PRN Reason: Pain (moderate 4-6) Last Admin: 08/19/18 05:32 Dose: 1 tab Oxycodone/Acetaminophen (Percocet 325-5 Mg) 2 tab PO Q4H PRN PRN Reason: Pain (moderate 4-6) Sodium Chloride (Saline Flush) 10 ml FLUSH ASDIRECTED PRN PRN Reason: Keep Vein Open Sodium Chloride (Saline Flush) 2.5 ml FLUSH ASDIRECTED PRN PRN Reason: Keep Vein Open Discontinued Medications Butorphanol Tartrate (Stadol) 1 mg IVPUSH Q1H PRN PRN Reason: Pain Last Admin: 08/16/18 08:44 Dose: 1 mg Carboprost Tromethamine (Hemabate Ds) 250 mcg IM ASDIRECTED PRN PRN Reason: Post Hemorrhage Cefazolin Sodium/Dextrose (Ancef) Confirm Administered Dose 2 gm IV .STK-MED ONE Stop: 08/17/18 09:26 Last Admin: 08/17/18 20:10 Dose: Not Given Fentanyl (Sublimaze) Confirm Administered Dose 100 mcg .ROUTE .STK-MED ONE Stop: 08/16/18 15:52 Last Admin: 08/17/18 20:09 Dose: Not Given Fentanyl (Sublimaze) Confirm Administered Dose 100 mcg .ROUTE .STK-MED ONE Stop: 08/17/18 01:29 Last Admin: 08/17/18 20:09 Dose: Not Given Fentanyl (Sublimaze) Confirm Administered Dose 100 mcg .ROUTE .STK-MED ONE Stop: 08/17/18 08:41 Last Admin: 08/17/18 20:10 Dose: Not Given Fentanyl (Sublimaze) 50 mcg IVPUSH Q5M PRN PRN Reason: Pain (severe 7-10) Stop: 08/18/18 10:14 Fentanyl (Sublimaze) Confirm Administered Dose 250 mcg .ROUTE .STK-MED ONE Stop: 08/17/18 10:30 Hydromorphone HCl (Dilaudid) 2 mg IVPUSH ONETIME ONE Stop: 08/17/18 10:15 Last Admin: 08/17/18 20:10 Dose: Not Given Lactated Ringer's (Ringers, Lactated) 1,000 mls @ 150 mls/hr IV ASDIRECTED JONO Last Admin: 08/17/18 06:36 Dose: 150 mls/hr Oxytocin/Sodium Chloride (Oxytocin 30 Unit/500 Ml-Ns) 30 unit in 500 mls @ 555 mls/hr IV TITRATE JONO Tranexamic Acid 1,000 mg/ (Sodium Chloride) 110 mls @ 660 mls/hr IV ONETIME PRN PRN Reason: Bleeding Oxytocin/Sodium Chloride (Oxytocin 30 Unit/500 Ml-Ns) 30 unit in 500 mls @ 2 mls/hr IV TITRATE JONO; Protocol Last Titration: 08/17/18 07:04 Dose: 18 munits/min, 18 mls/hr Fentanyl/Bupivacaine HCl (Knynfdbf-Zxxpm-Tq 2 Mcg/Ml-0.125%) Confirm Administered Dose 100 mls @ as directed .ROUTE .STK-MED ONE Stop: 08/16/18 15:51 Last Admin: 08/17/18 20:09 Dose: Not Given Fentanyl/Bupivacaine HCl (Vocwnsis-Xeugh-Fa 2 Mcg/Ml-0.125%) Confirm Administered Dose 100 mls @ as directed .ROUTE .STK-MED ONE Stop: 08/17/18 01:22 Last Admin: 08/17/18 20:09 Dose: Not Given Fentanyl/Bupivacaine HCl (Fdzxrdpr-Hqgus-Jn 2 Mcg/Ml-0.125%) Confirm Administered Dose 100 mls @ as directed .ROUTE .STK-MED ONE Stop: 08/17/18 08:42 Last Admin: 08/17/18 20:10 Dose: Not Given Cefazolin Sodium/Dextrose 2 gm (/ Premix) 50 mls @ 100 mls/hr IV ONETIME ONE Stop: 08/17/18 09:53 Last Admin: 08/17/18 20:10 Dose: Not Given Insulin Human Isoph/Insulin Regular (Novolin 70-30) 15 unit SUBCUT ONETIME JONO Ketorolac Tromethamine (Toradol) 30 mg IVPUSH Q6H JONO Stop: 08/18/18 12:46 Last Admin: 08/18/18 13:38 Dose: 30 mg Lidocaine HCl (Xylocaine 1%) 50 ml INJECT ONETIME PRN PRN Reason: Laceration repair Lidocaine/Epinephrine (Lidocaine 1.5%-Epi 1:200,000) Confirm Administered Dose 5 ml IJ .STK-MED ONE Stop: 08/16/18 15:52 Last Admin: 08/17/18 20:09 Dose: Not Given Lidocaine/Epinephrine (Xylocaine 2% With Epinephrine 1:100,000) 0 ml INJECT .STK-MED ONE Stop: 08/17/18 08:06 Methylergonovine Maleate (Methergine) 0.2 mg IM ASDIRECTED PRN PRN Reason: Post Hemorrhage Midazolam HCl (Versed 1 Mg/Ml) Confirm Administered Dose 2 mg .ROUTE .STK-MED ONE Stop: 08/17/18 10:34 Midazolam HCl (Versed 1 Mg/Ml) Confirm Administered Dose 2 mg .ROUTE .STK-MED ONE Stop: 08/17/18 10:51 Misoprostol (Cytotec) 200 mcg PO ONETIME PRN PRN Reason: Post Hemorrhage Misoprostol (Cytotec) 25 mcg VAG ONETIME PRN PRN Reason: Cervical Ripening Last Admin: 08/15/18 20:44 Dose: 25 mcg Misoprostol (Cytotec) 25 mcg VAG Q4H PRN PRN Reason: Cervical Ripening Last Admin: 08/16/18 05:20 Dose: 25 mcg Morphine Sulfate (Duramorph Pf) Confirm Administered Dose 10 mg .ROUTE .STK-MED ONE Stop: 08/17/18 09:08 Nalbuphine HCl (Nubain) 10 mg IVPUSH Q1H PRN PRN Reason: Pain (severe 7-10) Nalbuphine HCl (Nubain) 2.5 mg IVPUSH Q3H PRN PRN Reason: Pruritis Stop: 08/18/18 10:15 Ondansetron HCl (Zofran) Confirm Administered Dose 4 mg .ROUTE .STK-MED ONE Stop: 08/17/18 10:32 Oxytocin (Pitocin) Confirm Administered Dose 10 unit .ROUTE .STK-MED ONE Stop: 08/17/18 09:07 Oxytocin (Pitocin) Confirm Administered Dose 20 unit .ROUTE .STK-MED ONE Stop: 08/17/18 10:40 Propofol (Diprivan 20 Ml) Confirm Administered Dose 200 mg .ROUTE .STK-MED ONE Stop: 08/17/18 10:50 Sterile Water (Sterile Water For Irrigation) 1,000 ml IRR ASDIRECTED PRN PRN Reason: delivery Terbutaline Sulfate (Brethine) 0.25 mg SUBCUT ASDIRECTED PRN PRN Reason: Tacysystole - Assessment Assessment:: PPD 2 , s/p Primary LTCS , BP well controlled - Plan Plan:: BP check in 3- 5 days
[2018-08-19] MEDS: Docusate Sodium 100 MG Cap PO SCH (10:34)
== END 2018-08-19 11:35 | disposition home or self-care (01) | DRG 788 ==
LOC: MW.OB 10:11 → OBSVTOIN 08-17 10:11
PROVIDERS: ADMIT Obstetrics & Gynecology; ATTEND Obstetrics & Gynecology
PROC: 00HU33Z Insertion of Infusion Device into Spinal Canal, Percutaneous Approach (ICD-10-PCS; 2018-08-16)
PROC: 3E0R3BZ Introduction of Anesthetic Agent into Spinal Canal, Percutaneous Approach (ICD-10-PCS; 2018-08-16)
PROC: 3E0P7VZ Introduction of Hormone into Female Reproductive, Via Natural or Artificial Opening (ICD-10-PCS; principal; 2018-08-17)
PROC: 10907ZC Drainage of Amniotic Fluid, Therapeutic from Products of Conception, Via Natural or Artificial Opening (ICD-10-PCS; principal; 2018-08-17)
PROC: 10D00Z1 Extraction of Products of Conception, Low, Open Approach (ICD-10-PCS; principal; 2018-08-17)
PROC: 3E033VJ Introduction of Other Hormone into Peripheral Vein, Percutaneous Approach (ICD-10-PCS; principal; 2018-08-17)
PROC: 0U7C7ZZ Dilation of Cervix, Via Natural or Artificial Opening (ICD-10-PCS; principal; 2018-08-17)
DX: O14.04 Mild to moderate pre-eclampsia, complicating childbirth (principal); O24.424 Gestational diabetes mellitus in childbirth, insulin controlled; Z3A.37 37 weeks gestation of pregnancy; Z37.0 Single live birth; O13.4 Gestational [pregnancy-induced] hypertension without significant proteinuria, complicating childbirth; O76 Abnormality in fetal heart rate and rhythm complicating labor and delivery; O63.1 Prolonged second stage (of labor); O64.0XX0 Obstructed labor due to incomplete rotation of fetal head, not applicable or unspecified
CPT/HCPCS: 36415; 51702; 59025; 80053; 82947; 82962; 84550; 85014; 85018; 85027; 86850; 86900; 86901; A9270-GY; J0595; J1815-GY; J1885; J2250; J2270; J2405; J2590; J2704; J3010; J7120

== ENCOUNTER 2020-06-20 10:03 | Inpatient (IN) | payer OTHER ==
[~2020-06-20 10:03] MED LIST: Citric Acid/Sodium Citrate Solution 30 ML Cup PO ONE; Escitalopram 10 MG Tab PO ONE; Sodium Chloride 0.9% 10 ML SDV IV PRN; Sodium Chloride 0.9% 10 ML Syringe FLUSH PRN; Sodium Chloride 0.9% 2.5 ML Syringe FLUSH PRN; ceFAZolin 2 GM in Premix Bag 1 BAG IV ONE
[2020-06-20] MEDS ORDERED: Oxytocin/0.9 % Sodium Chloride 30 UNIT/500 ML BAG IV SCH (10:15)
[2020-06-20] MEDS ORDERED: Morphine PF 10 MG/10 ML SDV ONE (10:18)
[2020-06-20] MEDS ORDERED: fentaNYL 100 MCG/2 ML SDV ONE (10:18)
[2020-06-20] MEDS ORDERED: Ondansetron 4 MG/2 ML SDV ONE (10:21)
[2020-06-20] MEDS ORDERED: Phenylephrine 1% 10 MG/ML SDV ONE (10:22)
[2020-06-20] MEDS: Lactated Ringers 1,000 ML IV SCH ×2 (10:25→11:02)
[2020-06-20] MEDS ORDERED: Oxytocin 10 Units/1 ML SDV ONE ×2 (10:27→11:24)
[2020-06-20] MEDS ORDERED: Sodium Chloride 0.9% 20 ML ONE (10:34)
[2020-06-20] MEDS ORDERED: ceFAZolin 1 GM Vial ONE (10:34)
[2020-06-20] MEDS ORDERED: Acetaminophen/oxyCODONE 325-5 MG Tab PO PRN ×2 (11:01→12:03)
[2020-06-20] MEDS ORDERED: fentaNYL 100 MCG/2 ML SDV IVPUSH PRN (11:01)
[2020-06-20] MEDS ORDERED: diphenhydrAMINE 50 MG/ML SDV IVPUSH PRN ×2 (11:01→12:03)
[2020-06-20] MEDS ORDERED: Ondansetron 4 MG/2 ML SDV IVPUSH PRN ×2 (11:01→12:03)
[2020-06-20] MEDS ORDERED: Naloxone 0.4 MG/ML Syringe IVPUSH PRN (11:01)
--- NOTE | 2020-06-20 11:01 | PCM.PREANE ---
Preanesthetic Assessment - Anesthesia/Transfusion/Family Hx Anesthesia History: Prior Anesthesia Without Reaction Family History of Anesthesia Reaction: No Transfusion History: No Prior Transfusion(s) Intubation History: Unknown - Review of Systems General: No Symptoms Pulmonary: No Symptoms Cardiovascular: No Symptoms Gastrointestinal: No Symptoms Neurological: No Symptoms Other: Reports: None - Physical Assessment Height: 5 ft 3 in Weight: 85.729 kg ASA Class: 2 Mental Status: Alert & Oriented x3 Airway Class: Mallampati = 2 Dentition: Reports: Normal Dentition Thyro-Mental Finger Breadths: 3 Mouth Opening Finger Breadths: 2 (small mouth) ROM/Head Extension: Full Lungs: Clear to Auscultation, Normal Respiratory Effort Cardiovascular: Regular Rate, Regular Rhythm - Lab Values: Laboratory Last Values WBC 7.33 K/uL (4.0-11.0) 06/20/20 10:22 RBC 4.00 M/uL (4.30-5.90) L 06/20/20 10:22 Hgb 13.0 g/dL (12.0-16.0) 06/20/20 10:22 Hct 39.3 % (36.0-46.0) 06/20/20 10:22 MCV 98.3 fL (80.0-98.0) H 06/20/20 10:22 MCH 32.5 pg (27.0-32.0) H 06/20/20 10:22 MCHC 33.1 g/dL (31.0-37.0) 06/20/20 10:22 RDW Std Deviation 46.0 fl (28.0-62.0) 06/20/20 10:22 RDW Coeff of Lana 13 % (11.0-15.0) 06/20/20 10:22 Plt Count 177 K/uL (150-400) 06/20/20 10:22 MPV 11.10 fL (7.40-12.00) 06/20/20 10:22 Nucleated RBC % 0.0 /100WBC 06/20/20 10:22 Nucleated RBCs # 0 K/uL 06/20/20 10:22 POC Glucose 78 mg/dL (60-110) 06/20/20 10:44 - Allergies Allergies/Adverse Reactions: Allergies Allergy/AdvReac Type Severity Reaction Status Date / Time No Known Allergies Allergy Verified 06/20/20 10:36 - Blood Blood Available: No - Anesthesia Plan Pre-Op Medication Ordered: None - Acknowledgements Anesthesia Type Planned: Spinal (general anesthesia back-up plan) Pt an Appropriate Candidate for the Planned Anesthesia: Yes Alternatives and Risks of Anesthesia Discussed w Pt/Guardian: Yes Pt/Guardian Understands and Agrees with Anesthesia Plan: Yes PreAnesthesia Questionnaire - Past Health History Medical/Surgical History: Denies Medical/Surgical History HEENT History: Reports: Impaired Vision Other HEENT History: wears contact lens\glasses Cardiovascular History: Reports: None Respiratory History: Reports: None Gastrointestinal History: Reports: Diverticulosis Genitourinary History: Reports: None JEWEL STRINGER History: Reports: Ectopic , Musculoskeletal History: Reports: None Neurological History: Reports: None Psychiatric History: Reports: Depression Other Psychiatric History: states gets depression Endocrine/Metabolic History: Reports: Diabetes, Gestational Hematologic History: Reports: None Immunologic History: Reports: None Oncologic (Cancer) History: Reports: None Dermatologic History: Reports: None - Infectious Disease History Infectious Disease History: Reports: Chicken Pox, Influenza Other Infectious Disease History: when a child - Past Surgical History GI Surgical History: Reports: Appendectomy, Colon (resection for diverticulitis), Small Bowel Female Surgical History: Reports: Other (See Below) Other Female Surgeries/Procedures: Tubal - left tube ruptured, no salpinectomy - SUBSTANCE USE Tobacco Use Status *Q: Never Tobacco User - HOME MEDS Home Medications: Home Meds Escitalopram Oxalate [Lexapro] 1 tab PO DAILY 06/14/20 [History] Insulin NPH Human Isophane [Humulin N] 4 unit SUBCUT DAILY 06/14/20 [History] Insulin NPH Human Isophane [Humulin N] 16 unit SUBCUT DAILY 06/14/20 [History] Mv-Mn/Iron/FA/Herbal/Digestive [ One Tablet] 1 tab PO DAILY 06/14/20 [History] - CURRENT (IN HOUSE) MEDS Current Meds: Current Medications Oxytocin/Sodium Chloride (Oxytocin 30 Unit/500 Ml-Ns) 30 unit in 500 mls @ 250 mls/hr IV TITRATE JONO Lactated Ringer's (Ringers, Lactated) 1,000 mls @ 500 mls/hr IV BOLUS JONO Last Admin: 06/20/20 10:25 Dose: 500 mls/hr Documented by: Sodium Chloride (Saline Flush) 10 ml FLUSH ASDIRECTED PRN PRN Reason: Keep Vein Open Sodium Chloride (Saline Flush) 2.5 ml FLUSH ASDIRECTED PRN PRN Reason: Keep Vein Open Sodium Chloride (Normal Saline) 10 ml IV ASDIRECTED PRN PRN Reason: IV Use Discontinued Medications Cefazolin Sodium (Ancef) Confirm Administered Dose 2 gm .ROUTE .STK-MED ONE Stop: 06/20/20 10:35 Citric Acid/Sodium Citrate (Bicitra Solution) 30 ml PO ONETIME ONE Stop: 06/20/20 10:04 Escitalopram Oxalate (Lexapro) 10 mg PO ONETIME ONE Stop: 06/20/20 10:04 Last Admin: 06/20/20 10:25 Dose: 10 mg Documented by: Fentanyl (Sublimaze) Confirm Administered Dose 100 mcg .ROUTE .STK-MED ONE Stop: 06/20/20 10:19 Cefazolin Sodium/Dextrose 2 gm (/ Premix) 50 mls @ 100 mls/hr IV ONETIME ONE Stop: 06/20/20 10:32 Sodium Chloride (Normal Saline) Confirm Administered Dose 20 mls @ as directed .ROUTE .STK-MED ONE Stop: 06/20/20 10:35 Morphine Sulfate (Duramorph Pf) Confirm Administered Dose 10 mg .ROUTE .STK-MED ONE Stop: 06/20/20 10:19 Ondansetron HCl (Zofran) Confirm Administered Dose 4 mg .ROUTE .STK-MED ONE Stop: 06/20/20 10:22 Oxytocin (Pitocin) Confirm Administered Dose 20 unit .ROUTE .STK-MED ONE Stop: 06/20/20 10:28 Phenylephrine HCl (Juma-Synephrine) Confirm Administered Dose 10 mg .ROUTE .STK- MED ONE Stop: 06/20/20 10:23
[2020-06-20] MEDS ORDERED: Octyl 2-Cyanoacrylate 1 Tube ONE (11:50)
--- NOTE | 2020-06-20 12:02 | PCM.OPNOTE ---
- General Post-Op/Procedure Note Date of Surgery/Procedure: 06/20/20 Operative Procedure(s): repeat low transverse Findings: liveborn female 8/9 weight pending, dense and filmy adhesion of the anterior fundal uterus. Pre Op Diagnosis: 39 weeks, advanced maternal age, prior , declines VTOL, gestational diabetes Post-Op Diagnosis: Same Anesthesia Technique: Spinal Primary Surgeon: Wendy Warner Secondary Surgeon: Christiano Chavez Anesthesia Provider: Greg Woody Safety Analyst: Mayra Topete Pathology: none Fluid Replacement, Intraop: 900 EBL in mLs: 500 Complications: None Known Condition: Good
[2020-06-20] MEDS ORDERED: Methylergonovine 0.2 MG/1 ML Amp IM PRN (12:03)
[2020-06-20] MEDS ORDERED: Bisacodyl 10 MG Supp RECTAL PRN (12:03)
[2020-06-20] MEDS ORDERED: Lanolin 100% Cream 7 GM Tube TOP PRN (12:03)
[2020-06-20] MEDS ORDERED: Oxytocin 10 Units/1 ML SDV IM PRN (12:03)
[2020-06-20] MEDS ORDERED: Ibuprofen 800 MG Tab PO PRN (12:03)
[2020-06-20] MEDS ORDERED: Tranexamic Acid 1,000 MG in Sodium Chloride 0.9% 100 ML IV PRN (12:03)
[2020-06-20] MEDS ORDERED: Misoprostol 200 MCG Tab RECTAL PRN (12:03)
[2020-06-20] MEDS ORDERED: Oxytocin/Lactated Ringers 30 UNIT/500 ML BAG IV SCH (12:15)
[2020-06-20] MEDS ORDERED: Lactated Ringers 1,000 ML IV SCH (12:15)
--- NOTE | 2020-06-20 12:44 | PCM.POSTAN ---
POST ANESTHESIA ASSESSMENT - MENTAL STATUS Mental Status: Alert, Oriented - VITAL SIGNS Vital Signs: Last Vital Signs Temp 35.3 C L 06/20/20 12:15 Pulse 67 06/20/20 12:15 Resp 15 06/20/20 12:15 BP 93/59 L 06/20/20 12:15 Pulse Ox 97 06/20/20 12:15 - RESPIRATORY Respiratory Status: Respiratory Rate WNL, Airway Patent, O2 Saturation Stable - CARDIOVASCULAR CV Status: Pulse Rate WNL, Blood Pressure Stable - GASTROINTESTINAL GI Status: No Symptoms - POST OP HYDRATION Hydration Status: Adequate & Stable
[2020-06-20] MEDS: Ketorolac 30 MG/ML SDV IVPUSH SCH ×2 (12:51→18:48)
--- NOTE | 2020-06-20 13:11 | OR ---
SURGEON: Wendy Warner M.D. DATE OF PROCEDURE: 06/20/2020 PREOPERATIVE DIAGNOSES: A 39-week intrauterine , prior delivery, gestational diabetes, and declines vaginal trial of labor. POSTOPERATIVE DIAGNOSES: A 39-week intrauterine , prior delivery, gestational diabetes, and declines vaginal trial of labor. PROCEDURE: Repeat low transverse section. PRIMARY SURGEON: Wendy Warner MD TOURS CAPTAIN: Christiano Chavez MD ANESTHESIA: Spinal. ESTIMATED BLOOD LOSS: 500 mL. FLUIDS: 900 mL of crystalloid. FINDINGS: Live-born female, scores of 8 and 9, and weight is pending. There were adhesions to the anterior abdominal wall of the upper fundal portion of the uterus as well as some filmy adhesions. Normal-appearing tubes and ovaries. COMPLICATIONS: None known. DISPOSITION: Stable to Recovery. BRIEF HISTORY: This is a 40-year-old female G2, P1-0-0-1. She presents at 39 weeks gestation for a repeat delivery. She has had gestational diabetes throughout the . She has been fairly well controlled on insulin twice per day and she presents for repeat delivery with risks discussed including bleeding; infection; injury to bowel, bladder, blood vessels, ureters, or other organs; risk of thromboembolic event; and risk of anesthesia. Understanding all these risks, she does desire to proceed. DESCRIPTION OF PROCEDURE: With the patient in left tilt position, under adequate spinal analgesia, the abdomen was prepped with chlorhexidine and draped in usual fashion for abdominal surgery. SCDs were in place. Hillman catheter had been placed, and she had received 2 g of Ancef IV. After documentation of appropriate analgesia with the abdomen appropriately prepped and draped, a transverse curvilinear incision was made excising the prior cicatrix and carried through the subcutaneous tissue to the fascia, which was scored transversely in the midline. The fascial incision was extended laterally using curved Aragon scissors. The fascia was elevated from the underlying rectus muscle using sharp and blunt dissection. The rectus muscles were in the midline. A finger was used to enter the peritoneal cavity, and the incision was extended using sharp and blunt dissection. The Bill O retractor was able to be placed angling towards the right side of the uterus as the left side had adhesions. The visceral peritoneum over the lower uterine segment was incised. A scalpel was used to incise the lower uterine segment over the prior scar. A finger was used to enter the amniotic cavity. The incision was extended using blunt dissection, cephalad and caudad pressure to extend the transverse incision. The head was delivered via the uterine incision. Clear fluid was noted with subsequent delivery of the 's shoulders and body with fundal pressure. The was bulb suctioned by nose and mouth. After 1 minute, the cord was doubly clamped and cut. The infant was handed to the nurse in attendance at delivery. The was a liveborn female, scores of 8 and 9, and weight pending. Cord blood was collected for cord ABGs as well as routine cord blood sampling. Pitocin was initiated after delivery of the infant to assist with delivery of the placenta, which was delivered with fundal pressure. The uterus was cleaned with a dry laparotomy tape. The cervix was opened with a clean ring forceps. The uterine incision was closed with a running lock suture of 0 Polysorb followed by an imbricating layer of 0 Polysorb. Two [id number] sutures were placed in the midline for complete hemostasis. The posterior cul- de-sac and paracolic gutters were irrigated as best possible working around the adhesions. The site of adhesions was inspected for hemostasis, and they were hemostatic. The uterine incision was again inspected after removal of the Bill O retractor for hemostasis, and it was hemostatic. The rectus muscle and peritoneum were loosely approximated in the midline using a running mattress suture of 0 Polysorb. The posterior aspect of the fascia was inspected, any areas of bleeding that were noted were cauterized. The fascial incision was closed with a running suture of 0 Polysorb. The subcutaneous tissue was copiously irrigated, any areas of bleeding that were noted were cauterized. The deep subcutaneous tissue was reapproximated with a running suture of 3-0 plain. The skin was closed with a running subcuticular suture of 3-0 Monocryl followed by Dermabond. Final sponge, needle, and instrument counts were reported as correct. There were no known complications. The patient was transferred to Recovery in good condition. CAROLYN / ZOIE /[id number]
[2020-06-20] MEDS: Nalbuphine 10 MG/1 ML Vial IVPUSH PRN ×2 (15:00→21:39)
[2020-06-20] MEDS: Docusate Sodium 100 MG Cap PO SCH (21:41)
[2020-06-21] MEDS: Ketorolac 30 MG/ML SDV IVPUSH SCH ×3 (01:47→15:22)
[2020-06-21 06:32] LABS: BLOOD UREA NITROGEN,BUN 9 mg/dL (7.0-18.0); CARBON DIOXIDE,CO2 26.4 mmol/L (21.0-32.0); CHLORIDE,CL 107 mmol/L (98-107); GLUCOSE RANDOM 79 mg/dL (74-106); POTASSIUM,K 4.2 mmol/L (3.5-5.1); SODIUM,NA 141 mmol/L (136-145)
--- NOTE | 2020-06-21 07:43 | PCM48HPAN ---
Post Anesthesia Note - EVALUATION WITHIN 48HRS OF ANESTHETIC Vital Signs in Normal Range: Yes Patient Participated in Evaluation: Yes Respiratory Function Stable: Yes Airway Patent: Yes Cardiovascular Function Stable: Yes Hydration Status Stable: Yes Pain Control Satisfactory: Yes Nausea and Vomiting Control Satisfactory: Yes Mental Status Recovered: Yes Vital Signs: Last Vital Signs Temp 35.8 C L 06/20/20 20:27 Pulse 81 06/21/20 06:00 Resp 18 06/21/20 06:00 BP 115/68 06/20/20 20:27 Pulse Ox 98 06/21/20 06:00 - COMMENTS/OBSERVATIONS Free Text/Narrative:: No anesthesia problems
--- NOTE | 2020-06-21 09:05 | PCM.PNPP ---
- General Info Date of Service: 06/21/20 Functional Status: Reports: Pain Controlled, Tolerating Diet, Ambulating, Urinating - Review of Systems General: Reports: No Symptoms HEENT: Reports: No Symptoms Pulmonary: Reports: No Symptoms Cardiovascular: Reports: No Symptoms Gastrointestinal: Reports: No Symptoms Genitourinary: Reports: No Symptoms Musculoskeletal: Reports: No Symptoms Skin: Reports: No Symptoms Neurological: Reports: No Symptoms Psychiatric: Reports: No Symptoms - Patient Data Vital Signs - Most Recent: Last Vital Signs Temp 36.9 C 06/21/20 08:19 Pulse 75 06/21/20 08:19 Resp 18 06/21/20 08:19 BP 108/56 L 06/21/20 08:19 Pulse Ox 98 06/21/20 08:19 Weight - Most Recent: 85.729 kg I&O - Last 24 Hours: Intake & Output 06/20/20 06/21/20 06/21/20 22:59 06:59 14:59 Output Total 250 350 Balance -250 -350 Lab Results - Last 24 Hours: Laboratory Results - last 24 hr 06/20/20 06/20/20 06/20/20 Range/Units 10:22 10:22 10:44 WBC 7.33 (4.0-11.0) K/uL RBC 4.00 L (4.30-5.90) M/uL Hgb 13.0 (12.0-16.0) g/dL Hct 39.3 (36.0-46.0) % MCV 98.3 H (80.0-98.0) fL MCH 32.5 H (27.0-32.0) pg MCHC 33.1 (31.0-37.0) g/dL RDW Std Deviation 46.0 (28.0-62.0) fl RDW Coeff of Lana 13 (11.0-15.0) % Plt Count 177 (150-400) K/uL MPV 11.10 (7.40-12.00) fL Nucleated RBC % 0.0 /100WBC Nucleated RBCs # 0 K/uL Cord VBG pH (7.25-7.45) Cord VBG Base Excess (-10--2) Sodium (136-145) mmol/L Potassium (3.5-5.1) mmol/L Chloride (98-107) mmol/L Carbon Dioxide (21.0-32.0) mmol/L BUN (7.0-18.0) mg/dL Creatinine (0.6-1.0) mg/dL Est Cr Clr Drug Dosing mL/min Estimated GFR (MDRD) ml/min Glucose (74-106) mg/dL POC Glucose 78 (60-110) mg/dL Calcium (8.5-10.1) mg/dL Blood Type A POSITIVE Antibody Screen NEGATIVE 06/20/20 06/21/20 06/21/20 Range/Units 11:23 06:05 06:05 WBC (4.0-11.0) K/uL RBC (4.30-5.90) M/uL Hgb 11.0 L (12.0-16.0) g/dL Hct 33.1 L (36.0-46.0) % MCV (80.0-98.0) fL MCH (27.0-32.0) pg MCHC (31.0-37.0) g/dL RDW Std Deviation (28.0-62.0) fl RDW Coeff of Lana (11.0-15.0) % Plt Count (150-400) K/uL MPV (7.40-12.00) fL Nucleated RBC % /100WBC Nucleated RBCs # K/uL Cord VBG pH 7.285 (7.25-7.45) Cord VBG Base Excess -5 (-10--2) Sodium 141 (136-145) mmol/L Potassium 4.2 (3.5-5.1) mmol/L Chloride 107 (98-107) mmol/L Carbon Dioxide 26.4 (21.0-32.0) mmol/L BUN 9 (7.0-18.0) mg/dL Creatinine 0.9 (0.6-1.0) mg/dL Est Cr Clr Drug Dosing 67.36 mL/min Estimated GFR (MDRD) > 60.0 ml/min Glucose 79 (74-106) mg/dL POC Glucose (60-110) mg/dL Calcium 8.4 L (8.5-10.1) mg/dL Blood Type Antibody Screen Med Orders - Current: Current Medications Bisacodyl (Dulcolax) 10 mg RECTAL ONETIME PRN PRN Reason: Constipation Diphenhydramine HCl (Benadryl) 25 mg IVPUSH Q4H PRN PRN Reason: Itching Stop: 06/21/20 11:01 Diphenhydramine HCl (Benadryl) 25 mg IVPUSH Q6H PRN PRN Reason: Itching or Nausea Docusate Sodium (Colace) 100 mg PO BID [facility] Last Admin: 06/20/20 21:41 Dose: 100 mg Documented by: Emollient Ointment (Lansinoh Hpa) 0 gm TOP ASDIRECTED PRN PRN Reason: Sore Nipples Last Admin: 06/20/20 15:00 Dose: 7 gram Documented by: Escitalopram Oxalate (Lexapro) 10 mg PO DAILY [facility] Fentanyl (Sublimaze) 50 mcg IVPUSH Q1H PRN PRN Reason: Pain (severe 7-10) Lactated Ringer's (Ringers, Lactated) 1,000 mls @ 125 mls/hr IV ASDIRECTED [facility] Last Admin: 06/20/20 15:38 Dose: 125 mls/hr Documented by: Oxytocin/Lactated Ringer's (Pitocin In Lr 30 Units/500 Ml) 30 unit in 500 mls @ 999 mls/hr IV TITRATE [facility]; Protocol Tranexamic Acid 1,000 mg/ (Sodium Chloride) 110 mls @ 660 mls/hr IV ONETIME PRN PRN Reason: Bleeding Ibuprofen (Motrin) 800 mg PO Q8H PRN PRN Reason: mild pain or fever Ketorolac Tromethamine (Toradol) 30 mg IVPUSH Q6H [facility] Stop: 06/21/20 12:16 Last Admin: 06/21/20 01:47 Dose: 30 mg Documented by: Methylergonovine Maleate (Methergine) 0.2 mg IM ONETIME PRN PRN Reason: Excessive Vaginal Bleeding Misoprostol (Cytotec) 1,000 mcg RECTAL ONETIME PRN PRN Reason: excessive bleeding Nalbuphine HCl (Nubain) 5 mg IVPUSH ASDIRECTED PRN PRN Reason: Itching Last Admin: 06/20/20 21:39 Dose: 5 mg Documented by: Naloxone HCl (Narcan) 0.1 mg IVPUSH ONETIME PRN PRN Reason: Respiratory Depression Stop: 06/21/20 11:01 Ondansetron HCl (Zofran) 4 mg IVPUSH Q6H PRN PRN Reason: Nausea Ondansetron HCl (Zofran) 4 mg IVPUSH Q4H PRN PRN Reason: Nausea/Vomiting Last Admin: 06/20/20 17:12 Dose: 4 mg Documented by: Oxycodone/Acetaminophen (Percocet 325-5 Mg) 2 tab PO Q6H PRN PRN Reason: Pain (moderate 4-6) Oxycodone/Acetaminophen (Percocet 325-5 Mg) 1 tab PO Q4H PRN PRN Reason: Pain (moderate 4-6) Oxycodone/Acetaminophen (Percocet 325-5 Mg) 2 tab PO Q4H PRN PRN Reason: Pain (moderate 4-6) Oxytocin (Pitocin) 10 unit IM ASDIRECTED PRN PRN Reason: Excessive Vaginal Bleeding Prenat Multivit/Millard/Iron/Folic Ac ( Mtr) 1 each PO DAILY JONO Discontinued Medications Cefazolin Sodium (Ancef) Confirm Administered Dose 2 gm .ROUTE .STK-MED ONE Stop: 06/20/20 10:35 Citric Acid/Sodium Citrate (Bicitra Solution) 30 ml PO ONETIME ONE Stop: 06/20/20 10:04 Escitalopram Oxalate (Lexapro) 10 mg PO ONETIME ONE Stop: 06/20/20 10:04 Last Admin: 06/20/20 10:25 Dose: 10 mg Documented by: Fentanyl (Sublimaze) Confirm Administered Dose 100 mcg .ROUTE .STK-MED ONE Stop: 06/20/20 10:19 Oxytocin/Sodium Chloride (Oxytocin 30 Unit/500 Ml-Ns) 30 unit in 500 mls @ 250 mls/hr IV TITRATE [facility] Cefazolin Sodium/Dextrose 2 gm (/ Premix) 50 mls @ 100 mls/hr IV ONETIME ONE Stop: 06/20/20 10:32 Lactated Ringer's (Ringers, Lactated) 1,000 mls @ 500 mls/hr IV BOLUS [facility] Last Admin: 06/20/20 11:02 Dose: 500 mls/hr Documented by: Sodium Chloride (Normal Saline) Confirm Administered Dose 20 mls @ as directed .ROUTE .STK-MED ONE Stop: 06/20/20 10:35 Morphine Sulfate (Duramorph Pf) Confirm Administered Dose 10 mg .ROUTE .STK-MED ONE Stop: 06/20/20 10:19 Octyl Cyanoacrylate (Dermabond Advance) Confirm Administered Dose 1 applic .ROUTE .STK-MED ONE Stop: 06/20/20 11:51 Last Admin: 06/21/20 01:52 Dose: Not Given Documented by: Ondansetron HCl (Zofran) Confirm Administered Dose 4 mg .ROUTE .STK-MED ONE Stop: 06/20/20 10:22 Oxytocin (Pitocin) Confirm Administered Dose 20 unit .ROUTE .STK-MED ONE Stop: 06/20/20 10:28 Oxytocin (Pitocin) Confirm Administered Dose 10 unit .ROUTE .STK-MED ONE Stop: 06/20/20 11:25 Phenylephrine HCl (Juma-Synephrine) Confirm Administered Dose 10 mg .ROUTE .STK- MED ONE Stop: 06/20/20 10:23 Sodium Chloride (Saline Flush) 10 ml FLUSH ASDIRECTED PRN PRN Reason: Keep Vein Open Sodium Chloride (Saline Flush) 2.5 ml FLUSH ASDIRECTED PRN PRN Reason: Keep Vein Open Sodium Chloride (Normal Saline) 10 ml IV ASDIRECTED PRN PRN Reason: IV Use - Infant Interaction Infant Disposition, : [place] in Room with Family Interaction: Holding Infant Feeding: Breastfed Infant; Nursed Well Support Person: - Recovery Exam Fundal Tone: Firm Fundal Level: At Umbilicus Fundal Placement: Midline Lochia Amount: Scant Lochia Color: Rubra/Red Perineum Description: Intact, Minimal Bruising/Swelling Episiotomy/Laceration: None - Exam General: Alert, Oriented HEENT: Pupils Equal Lungs: Normal Respiratory Effort GI/Abdominal Exam: Soft, Non-Tender Extremities: Normal Inspection, Normal Range of Motion, Non-Tender, No Pedal Edema Skin: Warm, Dry, Intact Wound/Incisions: Dressing Dry and Intact - Problem List Review Problem List Initiated/Reviewed/Updated: Yes - My Orders Last 24 Hours: My Active Orders 06/20/20 10:22 RPR (SYPHILIS SERO) W/ RFLX [REF] Routine 06/20/20 12:03 Patient Status [ADT] Routine Ambulate [RC] PER UNIT ROUTINE Communication Order [RC] PER UNIT ROUTINE Communication Order [RC] PER UNIT ROUTINE Communication Order [RC] Per Unit Routine Intake and Output [RC] Q8H May Shower [RC] ASDIRECTED RT Incentive Spirometry [RC] Q2HWA Acetaminophen/oxyCODONE [Percocet 325-5 MG] 1 tab PO Q4H PRN Acetaminophen/oxyCODONE [Percocet 325-5 MG] 2 tab PO Q4H PRN Ibuprofen [Motrin] 800 mg PO Q8H PRN Lanolin [Lansinoh HPA] See Dose Instructions TOP ASDIRECTED PRN Methylergonovine [Methergine] 0.2 mg IM ONETIME PRN Ondansetron [Zofran] 4 mg IVPUSH Q4H PRN Oxytocin [Pitocin] 10 unit IM ASDIRECTED PRN Tranexamic Acid [Cyklokapron] 1,000 mg Sodium Chloride 0.9% [Normal Saline] 100 ml IV ONETIME bisacodyL [Dulcolax] 10 mg RECTAL ONETIME PRN diphenhydrAMINE [Benadryl] 25 mg IVPUSH Q6H PRN miSOPROStoL [Cytotec] 1,000 mcg RECTAL ONETIME PRN Abdominal Binder [OM.PC] Urgent Assess Lochia [WOMSER] Per Unit Routine Assess Uterine Involution [WOMSER] Per Unit Routine Breast Pump [WOMSER] Per Unit Routine Peripheral IV Discontinue [OM.PC] Routine Sequential Compression Device [OM.PC] Per Unit Routine Resuscitation Status Routine 06/20/20 12:04 Antiembolic Devices [RC] PER UNIT ROUTINE Notify Provider Vital Signs [RC] ASDIRECTED 06/20/20 12:05 Notify Provider Intake and Out [RC] ASDIRECTED 06/20/20 12:15 Ketorolac [Toradol] 30 mg IVPUSH Q6H Lactated Ringers [Ringers, Lactated] 1,000 ml IV ASDIRECTED Oxytocin/Lactated Ringers [Pitocin in LR 30 Units/500 ML] 30 unit in 500 ml IV TITRATE 06/20/20 Dinner Regular Diet [DIET] 06/20/20 21:00 Docusate Sodium [Colace] 100 mg PO BID 06/21/20 09:00 Escitalopram [Lexapro] 10 mg PO DAILY Vit/FA/Fe Fumarate/Se [ MTR] 1 each PO DAILY - Assessment Assessment:: POD#1 after repeat low transverse . Tolerating diet. This after noon may have dressing off and shower. Anticipate home tomorrow. - Plan Plan:: Continue postop care.
[2020-06-21] MEDS: Prenatal Multivitamin and Multimineral with Iron Tab PO SCH (09:44)
[2020-06-21] MEDS: Docusate Sodium 100 MG Cap PO SCH ×2 (09:45→20:44)
[2020-06-21] MEDS: Escitalopram 10 MG Tab PO SCH (09:45)
[2020-06-21] MEDS ORDERED: Ketorolac 30 MG/ML SDV ONE (15:04)
[2020-06-22] MEDS: Acetaminophen/oxyCODONE 325-5 MG Tab PO PRN ×2 (00:55→09:31)
--- NOTE | 2020-06-22 08:32 | PCM.PNPP ---
- General Info Date of Service: 06/22/20 Functional Status: Reports: Pain Controlled, Tolerating Diet, Ambulating, Urinating - Review of Systems General: Reports: No Symptoms HEENT: Reports: No Symptoms Pulmonary: Reports: No Symptoms Cardiovascular: Reports: No Symptoms Gastrointestinal: Reports: No Symptoms Genitourinary: Reports: No Symptoms Musculoskeletal: Reports: No Symptoms Skin: Reports: No Symptoms Neurological: Reports: No Symptoms Psychiatric: Reports: No Symptoms - Patient Data Vital Signs - Most Recent: Last Vital Signs Temp 35.9 C L 06/22/20 07:34 Pulse 85 06/22/20 07:34 Resp 22 H 06/22/20 07:34 BP 132/77 06/22/20 07:34 Pulse Ox 100 06/22/20 07:34 Weight - Most Recent: 85.729 kg Med Orders - Current: Current Medications Bisacodyl (Dulcolax) 10 mg RECTAL ONETIME PRN PRN Reason: Constipation Diphenhydramine HCl (Benadryl) 25 mg IVPUSH Q6H PRN PRN Reason: Itching or Nausea Docusate Sodium (Colace) 100 mg PO BID [facility] Last Admin: 06/21/20 20:44 Dose: 100 mg Documented by: Emollient Ointment (Lansinoh Hpa) 0 gm TOP ASDIRECTED PRN PRN Reason: Sore Nipples Last Admin: 06/20/20 15:00 Dose: 7 gram Documented by: Escitalopram Oxalate (Lexapro) 10 mg PO DAILY [facility] Last Admin: 06/21/20 09:45 Dose: 10 mg Documented by: Fentanyl (Sublimaze) 50 mcg IVPUSH Q1H PRN PRN Reason: Pain (severe 7-10) Lactated Ringer's (Ringers, Lactated) 1,000 mls @ 125 mls/hr IV ASDIRECTED [facility] Last Admin: 06/20/20 15:38 Dose: 125 mls/hr Documented by: Oxytocin/Lactated Ringer's (Pitocin In Lr 30 Units/500 Ml) 30 unit in 500 mls @ 999 mls/hr IV TITRATE [facility]; Protocol Tranexamic Acid 1,000 mg/ (Sodium Chloride) 110 mls @ 660 mls/hr IV ONETIME PRN PRN Reason: Bleeding Ibuprofen (Motrin) 800 mg PO Q8H PRN PRN Reason: mild pain or fever Last Admin: 06/22/20 05:52 Dose: 800 mg Documented by: Methylergonovine Maleate (Methergine) 0.2 mg IM ONETIME PRN PRN Reason: Excessive Vaginal Bleeding Misoprostol (Cytotec) 1,000 mcg RECTAL ONETIME PRN PRN Reason: excessive bleeding Nalbuphine HCl (Nubain) 5 mg IVPUSH ASDIRECTED PRN PRN Reason: Itching Last Admin: 06/20/20 21:39 Dose: 5 mg Documented by: Ondansetron HCl (Zofran) 4 mg IVPUSH Q6H PRN PRN Reason: Nausea Ondansetron HCl (Zofran) 4 mg IVPUSH Q4H PRN PRN Reason: Nausea/Vomiting Last Admin: 06/20/20 17:12 Dose: 4 mg Documented by: Oxycodone/Acetaminophen (Percocet 325-5 Mg) 2 tab PO Q6H PRN PRN Reason: Pain (moderate 4-6) Oxycodone/Acetaminophen (Percocet 325-5 Mg) 1 tab PO Q4H PRN PRN Reason: Pain (moderate 4-6) Last Admin: 06/21/20 17:55 Dose: 1 tab Documented by: Oxycodone/Acetaminophen (Percocet 325-5 Mg) 2 tab PO Q4H PRN PRN Reason: Pain (moderate 4-6) Last Admin: 06/22/20 00:55 Dose: 2 tab Documented by: Oxytocin (Pitocin) 10 unit IM ASDIRECTED PRN PRN Reason: Excessive Vaginal Bleeding Prenat Multivit/Metalsmith Helper/Iron/Folic Ac ( Mtr) 1 each PO DAILY [facility] Last Admin: 06/21/20 09:44 Dose: 1 each Documented by: Discontinued Medications Cefazolin Sodium (Ancef) Confirm Administered Dose 2 gm .ROUTE .STK-MED ONE Stop: 06/20/20 10:35 Citric Acid/Sodium Citrate (Bicitra Solution) 30 ml PO ONETIME ONE Stop: 06/20/20 10:04 Diphenhydramine HCl (Benadryl) 25 mg IVPUSH Q4H PRN PRN Reason: Itching Stop: 06/21/20 11:01 Escitalopram Oxalate (Lexapro) 10 mg PO ONETIME ONE Stop: 06/20/20 10:04 Last Admin: 06/20/20 10:25 Dose: 10 mg Documented by: Fentanyl (Sublimaze) Confirm Administered Dose 100 mcg .ROUTE .STK-MED ONE Stop: 06/20/20 10:19 Oxytocin/Sodium Chloride (Oxytocin 30 Unit/500 Ml-Ns) 30 unit in 500 mls @ 250 mls/hr IV TITRATE [facility] Cefazolin Sodium/Dextrose 2 gm (/ Premix) 50 mls @ 100 mls/hr IV ONETIME ONE Stop: 06/20/20 10:32 Lactated Ringer's (Ringers, Lactated) 1,000 mls @ 500 mls/hr IV BOLUS [facility] Last Admin: 06/20/20 11:02 Dose: 500 mls/hr Documented by: Sodium Chloride (Normal Saline) Confirm Administered Dose 20 mls @ as directed .ROUTE .STK-MED ONE Stop: 06/20/20 10:35 Ketorolac Tromethamine (Toradol) 30 mg IVPUSH Q6H [facility] Stop: 06/21/20 12:16 Last Admin: 06/21/20 15:22 Dose: 30 mg Documented by: Ketorolac Tromethamine (Toradol) Confirm Administered Dose 30 mg .ROUTE .STK-MED ONE Stop: 06/21/20 15:05 Morphine Sulfate (Duramorph Pf) Confirm Administered Dose 10 mg .ROUTE .STK-MED ONE Stop: 06/20/20 10:19 Naloxone HCl (Narcan) 0.1 mg IVPUSH ONETIME PRN PRN Reason: Respiratory Depression Stop: 06/21/20 11:01 Octyl Cyanoacrylate (Dermabond Advance) Confirm Administered Dose 1 applic .ROUTE .STK-MED ONE Stop: 06/20/20 11:51 Last Admin: 06/21/20 01:52 Dose: Not Given Documented by: Ondansetron HCl (Zofran) Confirm Administered Dose 4 mg .ROUTE .STK-MED ONE Stop: 06/20/20 10:22 Oxytocin (Pitocin) Confirm Administered Dose 20 unit .ROUTE .STK-MED ONE Stop: 06/20/20 10:28 Oxytocin (Pitocin) Confirm Administered Dose 10 unit .ROUTE .STK-MED ONE Stop: 06/20/20 11:25 Phenylephrine HCl (Juma-Synephrine) Confirm Administered Dose 10 mg .ROUTE .STK- MED ONE Stop: 06/20/20 10:23 Sodium Chloride (Saline Flush) 10 ml FLUSH ASDIRECTED PRN PRN Reason: Keep Vein Open Sodium Chloride (Saline Flush) 2.5 ml FLUSH ASDIRECTED PRN PRN Reason: Keep Vein Open Sodium Chloride (Normal Saline) 10 ml IV ASDIRECTED PRN PRN Reason: IV Use - Interaction Disposition, : in Room with Family Interaction: Holding Infant Infant Feeding: Breastfed Infant; Nursed Well Support Person: - Recovery Exam Fundal Tone: Firm Fundal Level: 1 Fingerbreadths Below Umbilicus Fundal Placement: Midline Lochia Amount: Scant Lochia Color: Rubra/Red Perineum Description: Intact, Minimal Bruising/Swelling Episiotomy/Laceration: None Bladder Status: Voiding Urinary Elimination: Voided - Exam General: Alert, Oriented Neck: Supple Lungs: Normal Respiratory Effort GI/Abdominal Exam: Soft, Non-Tender, No Distention Extremities: Normal Range of Motion, Non-Tender, No Pedal Edema Wound/Incisions: Healing Well Neurological: No New Focal Deficit Psy/Mental Status: Alert, Normal Affect, Normal Mood - Problem List Review Problem List Initiated/Reviewed/Updated: Yes - My Orders Last 24 Hours: My Active Orders 06/21/20 09:00 Escitalopram [Lexapro] 10 mg PO DAILY Vit/FA/Fe Fumarate/Se [ MTR] 1 each PO DAILY - Assessment Assessment:: POD#2 after repeat low transverse . Tolerating diet. pain is well controlled with oral medications, is going well. - Plan Plan:: Dismiss to home today, discharge instructions reviewed.
[2020-06-22] MEDS: Escitalopram 10 MG Tab PO SCH (09:31)
[2020-06-22] MEDS: Docusate Sodium 100 MG Cap PO SCH (09:31)
[2020-06-22] MEDS: Prenatal Multivitamin and Multimineral with Iron Tab PO SCH (09:31)
== END 2020-06-22 12:15 | disposition home or self-care (01) | DRG 788 ==
LOC: MW.OB 10:03
PROVIDERS: ADMIT Obstetrics & Gynecology; ATTEND Obstetrics & Gynecology
PROC: 10D00Z1 Extraction of Products of Conception, Low, Open Approach (ICD-10-PCS; principal; 2020-06-20)
DX: O34.211 Maternal care for low transverse scar from previous cesarean delivery (principal); O24.424 Gestational diabetes mellitus in childbirth, insulin controlled; Z3A.39 39 weeks gestation of pregnancy; Z37.0 Single live birth
CPT/HCPCS: 36415; 59025; 80048; 82803; 82962; 85014; 85018; 85027; 86592; 86850; 86900; 86901; A9270-GY; J0690; J1885; J2270; J2300; J2370; J2405; J2590; J3010; J7120